=== PATIENT | male | born 1980 | race Caucasian/White ===

== ENCOUNTER 2025-06-27 14:29 | Emergency (ER) | payer BC | END 2025-06-27 15:33 | disposition home or self-care (01) | LOC: ERS 14:29 | DX: S01.81XD Laceration without foreign body of other part of head, subsequent encounter (principal); L03.211 Cellulitis of face; I10 Essential (primary) hypertension; E11.9 Type 2 diabetes mellitus without complications; F17.290 Nicotine dependence, other tobacco product, uncomplicated; Z79.4 Long term (current) use of insulin; Z48.02 Encounter for removal of sutures; W19.XXXD Unspecified fall, subsequent encounter; Y93.9 Activity, unspecified | CPT/HCPCS: 99282 ==